=== PATIENT | male | born 1935 | race Caucasian/White ===

== ENCOUNTER 2017-12-18 09:56 | Inpatient (IN) | payer MEDICARE, BC ==
[~2017-12-18] VITALS: Ht 172.7 cm; Wt 67.0 kg
[2017-12-18 10:26] LABS: BASOPHILS % (AUTO) 0.5 % (0-1); EOSINOPHILS # (AUTO) 0.2 X10'3 (0-0.9); EOSINOPHILS % (AUTO) 2.6 % (0-6); HEMATOCRIT 31.2 % (42.0-52.0); HEMOGLOBIN 10.9 g/dl (14.0-17.9); LYMPHOCYTES # (AUTO) 1.4 X10'3 (1.1-4.8); LYMPHOCYTES % (AUTO) 16.1 % (21-51); MEAN CORPUSCULAR HEMOGLOBIN 33.6 PG (27.0-31.0); MEAN CORPUSCULAR HGB CONC 34.9 % (33.0-36.5); MEAN CORPUSCULAR VOLUME 96.3 FL (78-98); MEAN PLATELET VOLUME 8.5 FL (7.4-10.4); NEUTROPHILS # (AUTO) 6.2 X10'3 (1.8-7.7); NEUTROPHILS % (AUTO) 69.8 % (42-75); PLATELET COUNT 213 X10'3 (140-440); RED BLOOD COUNT 3.24 X10'6 (4.70-6.10); RED CELL DISTRIBUTION WIDTH 13.8 % (11.5-14.5); WHITE BLOOD COUNT 8.9 X10'3 (4.5-11.0)
[2017-12-18 10:39] LABS: ALANINE AMINOTRANSFERASE 29 U/L (12-78); ALBUMIN 3.8 G/DL (3.4-5.0); ALBUMIN/GLOBULIN RATIO 0.9 (1.1-1.5); ALKALINE PHOSPHATASE 48 IU/L (46-116); ANION GAP 9 (8-16); ASPARTATE AMINO TRANSFERASE 12 U/L (10-37); BILIRUBIN,TOTAL 0.5 MG/DL (0.1-1.0); BLOOD UREA NITROGEN 45 MG/DL (7-18); BUN/CREATININE RATIO 14.5 (5.4-32.0); CALCIUM 8.9 MG/DL (8.5-10.1); CHLORIDE 98 MMOL/L (99-107); CREATININE 3.11 MG/DL (0.60-1.10); GLUCOSE 162 MG/DL (70-104); SODIUM 135 MMOL/L (135-145); TOTAL CARBON DIOXIDE 28.2 MMOL/L (24-32); eGFR 19 ML/MIN
[2017-12-18 10:42] LABS: CLARITY,URINE CLEAR (Clear); COLOR,URINE STRAW (Yellow); GLUCOSE, URINE 250 mg/dl (Neg); KETONES,URINE NEGATIVE (Neg); LEUKOCYTE ESTERASE ,URINE NEGATIVE (Neg); NITRITES, URINE NEGATIVE (Neg); OCCULT BLOOD,URINE MODERATE (Neg); PROTEIN,URINE 100 mg/dl (Neg); UROBILINOGEN,URINE 0.2 E.U/dL (0.2-1.0)
[2017-12-18 10:43] LABS: UA COLLECTION TYPE CLN CATCH MIDSTREAM
[2017-12-18 10:51] LABS: BACTERIA,URINE FEW /HPF (Neg); MUCUS STRANDS FEW /LPF (Neg); RBC,URINE 0-2 /HPF (0-2); SQUAMOUS EPITHELIAL CELL,UR FEW /LPF (FEW); WBC,URINE 0-4 /HPF (0-4)
[2017-12-18 11:36] LABS: PARTIAL THROMBOPLASTIN TIME 28 SECONDS (22-32)
[2017-12-18 11:47] LABS: LIPASE 229 U/L (73-393)
[2017-12-18 13:22] LABS: CLARITY,URINE Clear (Clear); COLOR,URINE Yellow (Yellow); GLUCOSE, URINE 100 mg/dl (Neg); KETONES,URINE Negative (Neg); LEUKOCYTE ESTERASE ,URINE Negative (Neg); NITRITES, URINE Negative (Neg); OCCULT BLOOD,URINE Small (Neg); PROTEIN,URINE 30 mg/dl (Neg); UROBILINOGEN,URINE 0.2 E.U/dL (0.2-1.0)
[2017-12-18 13:23] LABS: UA COLLECTION TYPE CLN CATCH MIDSTREAM
[2017-12-18 13:40] LABS: SQUAMOUS EPITHELIAL CELL,UR FEW /LPF (FEW)
[2017-12-18 13:41] LABS: BACTERIA,URINE FEW /HPF (Neg); RBC,URINE 0-2 /HPF (0-2); WBC,URINE 0-4 /HPF (0-4)
[2017-12-18] MEDS ORDERED: NO HOME MEDS (16:40)
[2017-12-18] MEDS ORDERED: magnesium hydroxide 30ml (MOM) UD suspension PO PRN ×2 (16:55→17:05)
[2017-12-18] MEDS ORDERED: acetaminophen 325mg tablet PO PRN ×2 (16:55→17:05)
[2017-12-18] MEDS ORDERED: ondansetron/PF 4mg/2ml inj IV PRN ×2 (16:55→17:05)
[2017-12-18] MEDS ORDERED: mag hydrox/Alum hydrox/simeth 30ml oral suspension PO PRN ×2 (16:55→17:05)
[2017-12-18] MEDS ORDERED: potassium Cl 20 mEq SR tablet PO PRN ×2 (17:05)
[2017-12-18] MEDS ORDERED: magnesium Cl slow-release 64mg tablet PO PRN (17:05)
[2017-12-18] MEDS ORDERED: magnesium 4gm in 100ml NS 100 ML IV PRN (17:05)
[2017-12-18] MEDS ORDERED: potassium Cl 40MEQ/NS 500ml 500 ML IV PRN ×2 (17:05)
[2017-12-18] MEDS ORDERED: magnesium 2GM in 50ml NS 50 ML IV PRN (17:05)
[2017-12-18] MEDS ORDERED: SINCALIDE IV ONE (17:20)
[2017-12-18] MEDS ORDERED: NORMAL SALINE IV ONE (17:20)
[2017-12-18] MEDS: normal saline 1000ml 1,000 ML IV SCH (18:52)
[2017-12-18 20:45] VITALS: BP 165/85
[2017-12-18] MEDS ORDERED: temazepam 15mg capsule PO PRN (21:00)
[2017-12-18] MEDS: docusate sod 100mg capsule PO SCH (22:02)
[2017-12-18 23:00] VITALS: BP 141/65
[2017-12-19] VITALS (11 sets, daily range): BP systolic 132–167; BP diastolic 58–79
[2017-12-19] MEDS: normal saline 1000ml 1,000 ML IV SCH ×3 (04:40→23:01)
[2017-12-19 05:20] LABS: BASOPHILS # (AUTO) 0.1 X10'3 (0-0.2); BASOPHILS % (AUTO) 0.7 % (0-1); EOSINOPHILS # (AUTO) 0.1 X10'3 (0-0.9); HEMATOCRIT 30.5 % (42.0-52.0); HEMOGLOBIN 10.5 g/dl (14.0-17.9); LYMPHOCYTES # (AUTO) 1.4 X10'3 (1.1-4.8); LYMPHOCYTES % (AUTO) 18.9 % (21-51); MEAN CORPUSCULAR HEMOGLOBIN 33.7 PG (27.0-31.0); MEAN CORPUSCULAR HGB CONC 34.3 % (33.0-36.5); MEAN CORPUSCULAR VOLUME 98.1 FL (78-98); MEAN PLATELET VOLUME 9.3 FL (7.4-10.4); NEUTROPHILS # (AUTO) 4.6 X10'3 (1.8-7.7); NEUTROPHILS % (AUTO) 64.4 % (42-75); PLATELET COUNT 189 X10'3 (140-440); RED BLOOD COUNT 3.11 X10'6 (4.70-6.10); WHITE BLOOD COUNT 7.2 X10'3 (4.5-11.0)
[2017-12-19 05:59] LABS: ALANINE AMINOTRANSFERASE 21 U/L (12-78); ALBUMIN 3.2 G/DL (3.4-5.0); ALBUMIN/GLOBULIN RATIO 0.9 (1.1-1.5); ALKALINE PHOSPHATASE 39 IU/L (46-116); ANION GAP 8 (8-16); ASPARTATE AMINO TRANSFERASE 14 U/L (10-37); BILIRUBIN,TOTAL 0.3 MG/DL (0.1-1.0); BLOOD UREA NITROGEN 44 MG/DL (7-18); BUN/CREATININE RATIO 15.4 (5.4-32.0); CALCIUM 8.8 MG/DL (8.5-10.1); CHLORIDE 106 MMOL/L (99-107); CREATININE 2.86 MG/DL (0.60-1.10); GLUCOSE 123 MG/DL (70-104); MAGNESIUM 2.1 MG/DL (1.5-2.4); POTASSIUM 4.9 MMOL/L (3.5-5.1); SODIUM 140 MMOL/L (135-145); TOTAL CARBON DIOXIDE 26.5 MMOL/L (24-32); TOTAL PROTEIN 6.9 G/DL (6.4-8.2); eGFR 21 ML/MIN
[2017-12-19] MEDS: docusate sod 100mg capsule PO SCH ×2 (07:22→22:39)
[2017-12-19] MEDS: pantoprazole 40 MG vial IV SCH (07:22)
[2017-12-19] MEDS: K and/or MAG REPLACEMENT MC SCH (07:27)
[2017-12-19] MEDS ORDERED: NORMAL SALINE IV ONE (11:50)
[2017-12-19] MEDS ORDERED: SINCALIDE IV ONE (11:50)
[2017-12-20] VITALS (8 sets, daily range): BP systolic 110–186; BP diastolic 62–92
[2017-12-20 05:37] LABS: BASOPHILS # (AUTO) 0.1 X10'3 (0-0.2); BASOPHILS % (AUTO) 1.2 % (0-1); EOSINOPHILS # (AUTO) 0.3 X10'3 (0-0.9); EOSINOPHILS % (AUTO) 4.8 % (0-6); LYMPHOCYTES # (AUTO) 1.6 X10'3 (1.1-4.8); LYMPHOCYTES % (AUTO) 24.6 % (21-51); MEAN CORPUSCULAR HEMOGLOBIN 33.9 PG (27.0-31.0); MEAN CORPUSCULAR HGB CONC 34.5 % (33.0-36.5); MEAN CORPUSCULAR VOLUME 98.2 FL (78-98); MEAN PLATELET VOLUME 9.6 FL (7.4-10.4); MONOCYTES # (AUTO) 0.9 X10'3 (0-0.9); MONOCYTES % (AUTO) 14.6 % (2-12); NEUTROPHILS # (AUTO) 3.5 X10'3 (1.8-7.7); NEUTROPHILS % (AUTO) 54.8 % (42-75); PLATELET COUNT 179 X10'3 (140-440); RED BLOOD COUNT 2.95 X10'6 (4.70-6.10); RED CELL DISTRIBUTION WIDTH 14.1 % (11.5-14.5); WHITE BLOOD COUNT 6.4 X10'3 (4.5-11.0)
[2017-12-20 05:57] LABS: ALANINE AMINOTRANSFERASE 18 U/L (12-78); ALBUMIN 3.1 G/DL (3.4-5.0); ALBUMIN/GLOBULIN RATIO 0.9 (1.1-1.5); ALKALINE PHOSPHATASE 34 IU/L (46-116); ANION GAP 8 (8-16); ASPARTATE AMINO TRANSFERASE 13 U/L (10-37); BILIRUBIN,TOTAL 0.4 MG/DL (0.1-1.0); BLOOD UREA NITROGEN 38 MG/DL (7-18); BUN/CREATININE RATIO 12.7 (5.4-32.0); CALCIUM 8.8 MG/DL (8.5-10.1); CHLORIDE 107 MMOL/L (99-107); CREATININE 2.99 MG/DL (0.60-1.10); GLUCOSE 105 MG/DL (70-104); MAGNESIUM 1.9 MG/DL (1.5-2.4); POTASSIUM 5.1 MMOL/L (3.5-5.1); SODIUM 141 MMOL/L (135-145); TOTAL CARBON DIOXIDE 26.2 MMOL/L (24-32); TOTAL PROTEIN 6.7 G/DL (6.4-8.2); eGFR 20 ML/MIN
[2017-12-20] MEDS: docusate sod 100mg capsule PO SCH (08:00)
[2017-12-20] MEDS: K and/or MAG REPLACEMENT MC SCH (08:00)
[2017-12-20] MEDS: normal saline 1000ml 1,000 ML IV SCH (09:01)
[2017-12-20] MEDS ORDERED: LIDOcaine Viscous 15ml cup ONE (09:02)
[2017-12-20] MEDS ORDERED: MIDAZolam 5mg/5ml vial ONE ×2 (09:02→09:04)
[2017-12-20] MEDS ORDERED: fentaNYL/PF 50MCG/1 ML 2ML syringe ONE ×3 (09:02→09:04)
[2017-12-20] MEDS: pantoprazole 40 MG vial IV SCH (11:06)
[2017-12-20] MEDS ORDERED: PANT40TA4 PO (14:24)
[2017-12-20] MEDS ORDERED: pantoprazole 40mg Tablet.DR PO SCH (17:00)
== END 2017-12-20 16:23 | disposition home or self-care (01) | DRG 392 ==
LOC: ER 09:56 → ED HOLD 16:26 → SUR 3N 20:47
PROVIDERS: ADMIT Internal Medicine; ATTEND Internal Medicine Nephrology
PROC: CF2YYZZ Tomographic (Tomo) Nuclear Medicine Imaging of Hepatobiliary System and Pancreas using Other Radionuclide (ICD-10-PCS; principal; 2017-12-19)
PROC: 0D758ZZ Dilation of Esophagus, Via Natural or Artificial Opening Endoscopic (ICD-10-PCS; 2017-12-19)
PROC: 0D778ZZ Dilation of Stomach, Pylorus, Via Natural or Artificial Opening Endoscopic (ICD-10-PCS; 2017-12-19)
PROC: 0DB68ZX Excision of Stomach, Via Natural or Artificial Opening Endoscopic, Diagnostic (ICD-10-PCS; 2017-12-19)
DX: K29.00 Acute gastritis without bleeding (principal); N18.4 Chronic kidney disease, stage 4 (severe); Z95.1 Presence of aortocoronary bypass graft; D64.9 Anemia, unspecified; K22.2 Esophageal obstruction; K44.9 Diaphragmatic hernia without obstruction or gangrene; T39.395A Adverse effect of other nonsteroidal anti-inflammatory drugs [NSAID], initial encounter; I25.10 Atherosclerotic heart disease of native coronary artery without angina pectoris; M16.11 Unilateral primary osteoarthritis, right hip; Z88.5 Allergy status to narcotic agent; Y92.89 Other specified places as the place of occurrence of the external cause
CPT/HCPCS: 36415; 43239; 43245; 43450; 71045; 74176; 76700; 78227; 80053; 81001; 83690; 83735; 83880; 84484; 85025; 85610; 85730; 86885; 86900; 86901; 87070; 88305; 93005; 97116; 97161; 97530; 99285; A4620; A9537; C1726; C9113; G0500; J2250; J2405; J2805; J3010; J7030; J7040; J7042

== ENCOUNTER 2018-11-14 15:00 | Emergency (ER) | payer MEDICARE, BC ==
[~2018-11-14] VITALS: Ht 175.3 cm; Wt 68.0 kg
[~2018-11-14 15:00] MED LIST: PANT40TA4 PO
[2018-11-14] MEDS ORDERED: normal saline 1000ML IV soln IVB ONE (15:15)
[2018-11-14] MEDS ORDERED: ondansetron/PF 4mg/2ml inj IV ONE (15:15)
[2018-11-14] MEDS ORDERED: morphine 4 MG/ML inj SYRINge IV PRN (15:15)
--- NOTE | 2018-11-14 15:38 | NUR ---
TO CT SCAN [facility]IA [facility]
[2018-11-14 16:17] LABS: BASOPHILS % (AUTO) 0.6 % (0-1); EOSINOPHILS # (AUTO) 0.2 X10'3 (0-0.9); EOSINOPHILS % (AUTO) 3.5 % (0-6); HEMATOCRIT 37.5 % (42.0-52.0); HEMOGLOBIN 12.5 g/dl (14.0-17.9); LYMPHOCYTES # (AUTO) 1.3 X10'3 (1.1-4.8); LYMPHOCYTES % (AUTO) 21.5 % (21-51); MEAN CORPUSCULAR HEMOGLOBIN 32.6 PG (27.0-31.0); MEAN CORPUSCULAR HGB CONC 33.2 % (33.0-36.5); MEAN CORPUSCULAR VOLUME 98.1 FL (78-98); MEAN PLATELET VOLUME 9.3 FL (7.4-10.4); MONOCYTES # (AUTO) 0.7 X10'3 (0-0.9); NEUTROPHILS # (AUTO) 3.8 X10'3 (1.8-7.7); NEUTROPHILS % (AUTO) 63.4 % (42-75); PLATELET COUNT 160 X10'3 (140-440); RED BLOOD COUNT 3.83 X10'6 (4.70-6.10); RED CELL DISTRIBUTION WIDTH 12.8 % (11.5-14.5)
[2018-11-14 16:30] LABS: ALANINE AMINOTRANSFERASE 22 U/L (12-78); ALBUMIN 3.5 G/DL (3.4-5.0); ALKALINE PHOSPHATASE 49 IU/L (46-116); ANION GAP 8 (8-16); ASPARTATE AMINO TRANSFERASE 14 U/L (10-37); BILIRUBIN,TOTAL 0.3 MG/DL (0.1-1.0); BLOOD UREA NITROGEN 53 MG/DL (7-18); BUN/CREATININE RATIO 17.5 (5.4-32.0); CALCIUM 8.8 MG/DL (8.5-10.1); CHLORIDE 105 MMOL/L (99-107); CREATININE 3.02 MG/DL (0.60-1.10); GLUCOSE 122 MG/DL (70-104); POTASSIUM 5.1 MMOL/L (3.5-5.1); SODIUM 140 MMOL/L (135-145); TOTAL CARBON DIOXIDE 27.2 MMOL/L (24-32); TOTAL PROTEIN 7.1 G/DL (6.4-8.2); eGFR 20 ML/MIN
[2018-11-14 16:33] VITALS: BP 149/70
[2018-11-14] MEDS ORDERED: DOCU-28 PO (16:43)
[2018-11-14] MEDS ORDERED: TRAM50TA2 PO (16:43)
== END 2018-11-14 17:07 | disposition home or self-care (01) ==
LOC: ER 15:01
DX: N18.4 Chronic kidney disease, stage 4 (severe) (principal); M19.90 Unspecified osteoarthritis, unspecified site; Z79.899 Other long term (current) drug therapy
CPT/HCPCS: 36415; 74176; 80053; 85025; 93005; 96374; 96375; 99284; J2270; J2405; J7030

== ENCOUNTER 2020-07-17 04:45 | Emergency (ER) | payer BC, MEDICARE ==
[~2020-07-17] VITALS: Ht 172.7 cm; Wt 61.4 kg
[~2020-07-17 04:45] MED LIST changes: +DOCU-28 PO; -PANT40TA4 PO; +PANT40TA54 PO
--- NOTE | 2020-07-17 05:32 | NUR ---
[phone] SPOUSES NUMBER USE THIS ONE
[2020-07-17 05:46] LABS: BASOPHILS # (AUTO) 0.1 X10'3 (0-0.2); BASOPHILS % (AUTO) 0.7 % (0-1); EOSINOPHILS # (AUTO) 0.4 X10'3 (0-0.9); EOSINOPHILS % (AUTO) 4.7 % (0-6); HEMATOCRIT 40.4 % (42.0-52.0); HEMOGLOBIN 13.7 g/dl (14.0-17.9); LYMPHOCYTES # (AUTO) 1.4 X10'3 (1.1-4.8); MEAN CORPUSCULAR HEMOGLOBIN 33.3 PG (27.0-31.0); MEAN CORPUSCULAR HGB CONC 33.9 g/dL (33.0-36.5); MEAN CORPUSCULAR VOLUME 98.3 FL (78-98); MEAN PLATELET VOLUME 9.3 FL (7.4-10.4); MONOCYTES # (AUTO) 1.1 X10'3 (0-0.9); MONOCYTES % (AUTO) 13.3 % (2-12); NEUTROPHILS # (AUTO) 5.4 X10'3 (1.8-7.7); NEUTROPHILS % (AUTO) 64.3 % (42-75); PLATELET COUNT 217 X10'3 (140-440); RED BLOOD COUNT 4.11 X10'6 (4.70-6.10); RED CELL DISTRIBUTION WIDTH 12.7 % (11.5-14.5); WHITE BLOOD COUNT 8.3 X10'3 (4.5-11.0)
[2020-07-17] MEDS ORDERED: famotidine 10mg tablet PO ONE (06:10)
[2020-07-17] MEDS ORDERED: dexamethasone 4mg tablet PO ONE (06:10)
[2020-07-17] MEDS ORDERED: HYDR-3686 PO ×2 (06:11→06:42)
[2020-07-17 06:15] LABS: ALANINE AMINOTRANSFERASE 56 U/L (12-78); ALBUMIN 4.3 G/DL (3.4-5.0); ALBUMIN/GLOBULIN RATIO 1.2 (1.1-1.5); ALKALINE PHOSPHATASE 61 IU/L (46-116); ANION GAP 11 (8-16); ASPARTATE AMINO TRANSFERASE 21 U/L (10-37); BILIRUBIN,TOTAL 0.3 MG/DL (0.1-1.0); BLOOD UREA NITROGEN 82 MG/DL (7-18); BUN/CREATININE RATIO 23.8 (5.4-32.0); CALCIUM 9.1 MG/DL (8.5-10.1); CHLORIDE 102 MMOL/L (99-107); CREATININE 3.45 MG/DL (0.60-1.10); GLUCOSE 142 MG/DL (70-104); POTASSIUM 4.6 MMOL/L (3.5-5.1); SODIUM 135 MMOL/L (135-145); TOTAL PROTEIN 7.8 G/DL (6.4-8.2); eGFR 17 ML/MIN
[2020-07-17 06:20] VITALS: BP 148/80
[2020-07-17] MEDS ORDERED: PRED20TA PO ×2 (06:35→06:42)
[2020-07-17] MEDS ORDERED: FAMO20TA44 PO ×2 (06:35→06:42)
[2020-07-17] MEDS ORDERED: OMEP20CA15 PO (06:35)
== END 2020-07-17 06:56 | disposition home or self-care (01) ==
LOC: ER 04:45
DX: L29.9 Pruritus, unspecified (principal); R21 Rash and other nonspecific skin eruption; N18.9 Chronic kidney disease, unspecified; Z79.899 Other long term (current) drug therapy
CPT/HCPCS: 36415; 71046; 80053; 84443; 85025; 99284